=== PATIENT | female | born 1950 | race Caucasian/White ===

== ENCOUNTER 2018-03-28 06:09 | Day surgery (SDC) ==
[2018-03-28] MEDS: BETADINE OPTH PREP OP PRN ×2 (06:55→07:46)
[2018-03-28] MEDS: CYCLOGYL 2% OPTH OP PRN ×3 (06:55→07:05)
[2018-03-28] MEDS: TETRACAINE 0.5% UNIT-DOSE OP PRN ×2 (06:55→07:46)
[2018-03-28] MEDS ORDERED: ZOFRAN 4 MG/2 ML IVP ONE (07:06)
[2018-03-28] MEDS ORDERED: LIDOCAINE 1%/PHENYLEPHRINE 1.5% BSS (SURGERY) INTRAOCULA ONE (07:06)
[2018-03-28] MEDS ORDERED: LIDOCAINE 1% 20 ML MDV ID STA (07:06)
[2018-03-28] MEDS ORDERED: DEX-MOXI-KETOR OPTH INJ 1/0.5/0.4 MG/ML IO ONE (07:06)
[2018-03-28] MEDS ORDERED: BRIMONIDINE TARTRATE 0.2% OPTH SOL OP PRN (07:06)
[2018-03-28] MEDS ORDERED: BSS WITH EPINEPHRINE OP ONE (07:06)
[2018-03-28] MEDS ORDERED: SUBLIMAZE ONE (07:45)
[2018-03-28] MEDS ORDERED: VERSED ONE (07:45)
[2018-03-28 08:40] VITALS: BP 120/56; TEMP 98.6
== END 2018-03-28 08:30 | disposition home or self-care (01) ==
LOC: SURG 06:09
PROVIDERS: ATTEND Ophthalmology
DX: H25.812 Combined forms of age-related cataract, left eye (principal)

== ENCOUNTER 2018-04-05 07:11 | Day surgery (SDC) ==
[2018-04-05] MEDS: BETADINE OPTH PREP OP PRN ×2 (07:30→08:14)
[2018-04-05] MEDS: TETRACAINE 0.5% UNIT-DOSE OP PRN ×2 (07:30→08:14)
[2018-04-05] MEDS: CYCLOGYL 2% OPTH OP PRN ×3 (07:30→07:40)
[2018-04-05 07:36] VITALS: TEMP 97
[2018-04-05] MEDS ORDERED: ZOFRAN 4 MG/2 ML IVP ONE (07:38)
[2018-04-05] MEDS ORDERED: LIDOCAINE 1%/PHENYLEPHRINE 1.5% BSS (SURGERY) INTRAOCULA ONE (07:38)
[2018-04-05] MEDS ORDERED: BRIMONIDINE TARTRATE 0.2% OPTH SOL OP PRN (07:38)
[2018-04-05] MEDS ORDERED: BSS WITH EPINEPHRINE OP ONE (07:38)
[2018-04-05] MEDS ORDERED: DEX-MOXI-KETOR OPTH INJ 1/0.5/0.4 MG/ML IO ONE (07:38)
[2018-04-05] MEDS ORDERED: LIDOCAINE 1% 20 ML MDV ID STA (07:38)
[2018-04-05] MEDS ORDERED: SUBLIMAZE ONE (08:15)
[2018-04-05] MEDS ORDERED: VERSED ONE (08:15)
[2018-04-05 14:09] VITALS: BP 128/67
== END 2018-04-05 09:00 | disposition home or self-care (01) ==
LOC: SURG 07:11
PROVIDERS: ATTEND Ophthalmology
DX: H25.811 Combined forms of age-related cataract, right eye (principal)